=== PATIENT | female | born 1950 | race Caucasian/White ===

== ENCOUNTER 2019-11-12 12:50 | Outpatient (CLI) | payer OTHER ==
[2019-11-13] MEDS ORDERED: FOSAMAX70 MG PO (10:16)
[2019-11-13] MEDS ORDERED: ANORO ELLIPTA1 EACH IH (10:16)
[2019-11-13] MEDS ORDERED: VITAMIN D PO (10:17)
== END 2019-11-12 12:59 | disposition home or self-care (01) ==
LOC: RAD 12:50
PROVIDERS: ATTEND Orthopaedic Surgery
DX: M25.551 Pain in right hip (principal); M25.552 Pain in left hip; Z76.89 Persons encountering health services in other specified circumstances; M54.5 Low back pain

== ENCOUNTER 2019-11-12 16:24 | Outpatient (CLI) | payer OTHER ==
[2019-11-13] MEDS ORDERED: FOSAMAX70 MG PO (10:16)
[2019-11-13] MEDS ORDERED: ANORO ELLIPTA1 EACH IH (10:16)
[2019-11-13] MEDS ORDERED: VITAMIN D PO (10:17)
== END 2019-11-12 16:30 | disposition home or self-care (01) ==
LOC: LAB 16:24
PROVIDERS: ATTEND Orthopaedic Surgery
DX: D64.89 Other specified anemias (principal); E88.89 Other specified metabolic disorders; D68.8 Other specified coagulation defects; N39.0 Urinary tract infection, site not specified; Z22.322 Carrier or suspected carrier of Methicillin resistant Staphylococcus aureus

== ENCOUNTER 2019-11-13 07:12 | Outpatient (CLI) | payer OTHER ==
[2019-11-13] MEDS ORDERED: FOSAMAX70 MG PO (10:16)
[2019-11-13] MEDS ORDERED: ANORO ELLIPTA1 EACH IH (10:16)
[2019-11-13] MEDS ORDERED: VITAMIN D PO (10:17)
== END 2019-11-13 07:23 | disposition home or self-care (01) ==
LOC: NUCLEAR 07:12
PROVIDERS: ATTEND Orthopaedic Surgery
DX: I73.89 Other specified peripheral vascular diseases (principal); I70.213 Atherosclerosis of native arteries of extremities with intermittent claudication, bilateral legs

== ENCOUNTER 2019-11-14 09:07 | Outpatient (CLI) | payer OTHER ==
[~2019-11-14 09:07] MED LIST: ANORO ELLIPTA1 EACH IH; FOSAMAX70 MG PO; VITAMIN D PO
== END 2019-11-14 14:29 | disposition home or self-care (01) ==
LOC: NUCLEAR 09:07
PROVIDERS: ATTEND Orthopaedic Surgery
DX: I87.2 Venous insufficiency (chronic) (peripheral) (principal)

== ENCOUNTER 2019-11-14 10:04 | Outpatient (CLI) | payer OTHER | END 2019-11-14 10:11 | disposition home or self-care (01) | LOC: TOM 10:04 | PROVIDERS: ATTEND Orthopaedic Surgery | DX: M87.051 Idiopathic aseptic necrosis of right femur (principal); M87.052 Idiopathic aseptic necrosis of left femur ==

== ENCOUNTER 2019-11-18 06:00 | Day surgery (SDC) | payer OTHER ==
[~2019-11-18] VITALS: Ht 160 cm; Wt 70.3 kg
== END 2019-11-18 07:54 | disposition home or self-care (01) ==
LOC: CIR.AMB 06:00 → SURH 06:00 → O/R 06:00 → EDSTATUS 07:00 → SURH 07:00 → EDSTATUS 07:19 → SURH 07:23 → CIR.AMB 07:54 → O/R 13:00
PROVIDERS: ATTEND Orthopaedic Surgery
DX: S72.092A Other fracture of head and neck of left femur, initial encounter for closed fracture (principal); Z53.8 Procedure and treatment not carried out for other reasons
CPT/HCPCS: 27130; C1776

== ENCOUNTER 2019-11-19 14:26 | Inpatient (IN) | payer OTHER ==
[~2019-11-19] VITALS: Ht 160 cm; Wt 70.3 kg
[2019-11-21] MEDS ORDERED: ALPRAZOLAM0.5 MG (16:45)
[2019-11-21] MEDS ORDERED: VITAMIN D310 MC5 (16:45)
[2019-11-21] MEDS ORDERED: FUROSEMIDE20 MG (16:46)
== END 2019-11-27 12:28 | disposition home or self-care (01) | DRG 470 ==
LOC: SURH 11-24 07:00 → O/R 11-24 07:02 → SURH 11-24 12:20
PROVIDERS: ADMIT Orthopaedic Surgery; ATTEND Orthopaedic Surgery
PROC: 0SRB0JZ Replacement of Left Hip Joint with Synthetic Substitute, Open Approach (ICD-10-PCS; principal; 2019-11-24 07:00)
DX: M16.12 Unilateral primary osteoarthritis, left hip (principal); D62 Acute posthemorrhagic anemia; J44.9 Chronic obstructive pulmonary disease, unspecified; M81.8 Other osteoporosis without current pathological fracture

== ENCOUNTER 2020-03-30 09:30 | Inpatient (IN) | payer OTHER ==
[~2020-03-30] VITALS: Ht 162.6 cm; Wt 68.0 kg
[~2020-03-30 09:30] MED LIST changes: +ALPRAZOLAM0.5 MG; +FUROSEMIDE20 MG; +VITAMIN D310 MC5
[2020-04-06] MEDS ORDERED: ATORVASTATIN CA40 MG (11:22)
[2020-04-06] MEDS ORDERED: OXYCONTIN10 M1 (11:22)
[2020-04-06] MEDS ORDERED: ANORO ELLIPTA1 EACH (11:22)
[2020-04-06] MEDS ORDERED: XARELTO10 M1 (11:22)
[2020-04-06] MEDS ORDERED: ULTRAM50 MG (11:22)
== END 2020-04-10 10:03 | disposition home or self-care (01) | DRG 470 ==
LOC: EDSTATUS 09:30 → SURH 04-06 05:50 → O/R 04-06 05:50 → SURH 04-06 07:00 → CIR.AMB 04-06 09:30 → EDSTATUS 04-06 09:30 → SURH 04-06 13:51
PROVIDERS: ADMIT Orthopaedic Surgery; ATTEND Orthopaedic Surgery
PROC: 0SR90JZ Replacement of Right Hip Joint with Synthetic Substitute, Open Approach (ICD-10-PCS; principal; 2020-04-06 07:00)
PROC: 30233N1 Transfusion of Nonautologous Red Blood Cells into Peripheral Vein, Percutaneous Approach (ICD-10-PCS; 2020-04-07)
DX: M16.11 Unilateral primary osteoarthritis, right hip (principal); D62 Acute posthemorrhagic anemia; M87.851 Other osteonecrosis, right femur; Z96.649 Presence of unspecified artificial hip joint; J44.9 Chronic obstructive pulmonary disease, unspecified

== ENCOUNTER 2020-04-14 22:38 | Inpatient (IN) | payer OTHER ==
[~2020-04-14] VITALS: Ht 165.1 cm; Wt 72.6 kg
[~2020-04-14 22:38] MED LIST changes: +ANORO ELLIPTA1 EACH; +ATORVASTATIN CA40 MG; +OXYCONTIN10 M1; +ULTRAM50 MG; +XARELTO10 M1
== END 2020-04-23 10:46 | disposition home or self-care (01) | DRG 194 ==
LOC: ER 22:38 → ICU-2 04-15 11:50 → ICU 04-16 13:27 → SURH 04-20 20:21
PROVIDERS: ADMIT Internal Medicine; ATTEND Internal Medicine
PROC: 5A09557 Assistance with Respiratory Ventilation, Greater than 96 Consecutive Hours, Continuous Positive Airway Pressure (ICD-10-PCS; 2020-04-15)
PROC: B24BZZZ Ultrasonography of Heart with Aorta (ICD-10-PCS; 2020-04-15)
PROC: B54DZZZ Ultrasonography of Bilateral Lower Extremity Veins (ICD-10-PCS; 2020-04-15)
PROC: 4A033R1 Measurement of Arterial Saturation, Peripheral, Percutaneous Approach (ICD-10-PCS; principal; 2020-04-17)
PROC: 02HV33Z Insertion of Infusion Device into Superior Vena Cava, Percutaneous Approach (ICD-10-PCS; 2020-04-22)
DX: J18.9 Pneumonia, unspecified organism (principal); J98.11 Atelectasis; Z99.11 Dependence on respirator [ventilator] status; R09.02 Hypoxemia; J44.9 Chronic obstructive pulmonary disease, unspecified; Z85.118 Personal history of other malignant neoplasm of bronchus and lung; M81.8 Other osteoporosis without current pathological fracture; Z79.01 Long term (current) use of anticoagulants; Z08 Encounter for follow-up examination after completed treatment for malignant neoplasm

== ENCOUNTER 2020-08-19 06:00 | Day surgery (SDC) | payer OTHER ==
[2020-09-15] MEDS ORDERED: [UNRECOGNIZED DRUG - CODE] PO (12:56)
[2020-09-15] MEDS ORDERED: TRELE IH (12:57)
== END 2020-08-19 12:40 | disposition home or self-care (01) ==
LOC: AMB-ENDOS 06:00
PROVIDERS: ATTEND Surgery
DX: D12.5 Benign neoplasm of sigmoid colon (principal); D12.8 Benign neoplasm of rectum; Z20.822 Contact with and (suspected) exposure to COVID-19

== ENCOUNTER 2020-09-16 07:25 | Day surgery (SDC) | payer OTHER ==
[~2020-09-16 07:25] MED LIST changes: +TRELE IH; +[UNRECOGNIZED DRUG - CODE] PO
== END 2020-09-16 16:15 | disposition home or self-care (01) ==
LOC: CIR.AMB 07:25
PROVIDERS: ATTEND Surgery
DX: C34.82 Malignant neoplasm of overlapping sites of left bronchus and lung (principal); C34.81 Malignant neoplasm of overlapping sites of right bronchus and lung; Z20.822 Contact with and (suspected) exposure to COVID-19
CPT/HCPCS: 36561; C1751